=== PATIENT | female | born 1975 | race American Indian/Alaskan Native ===

== ENCOUNTER 2020-01-27 09:36 | Emergency (ER) | payer OTHER ==
[2020-01-27] MEDS ORDERED: hydrALAZINE 20 MG/1 ML INJ IV ONE (10:35)
--- NOTE | 2020-01-27 10:37 | Emergency Department Report ---
HPI - General Chief Complaint: Weakness Time Seen by Provider: 01/27/20 10:17 - HPI HPI: 44-year-old -[place] female presents to the emergency department with the complaint of some fatigue and generalized weakness and lightheadedness. Patient has been having bilateral hand pain and some swelling for the past week or so. She had a virtual visit with her primary care physician, Dr. Benitez, and was diagnosed with carpal tunnel and was prescribed some splints which she has been wearing. More recently she started complaining of some superior and posterior left shoulder pain. She recently had an x-ray done that did not show any fracture, dislocation or any acute process, per the patient. The patient says she was not feeling well when she woke up with the aforementioned symptoms but went to work anyways. While there she started having the lightheadedness/dizziness which is what prompted her to come to the emergency department. She has a past medical history of hypertension for which he takes lisinopril. No recent travel or sick contacts at home. She denies any fever, chest pain, shortness of breath. 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 denies: fever Eyes: denies: eye pain, vision change ENT: denies: ear pain, throat pain Respiratory: denies: cough, shortness of breath Cardiovascular: denies: chest pain, palpitations Gastrointestinal: denies: abdominal pain, vomiting Genitourinary: denies: dysuria, discharge Musculoskeletal: arthralgia. denies: back pain Skin: denies: rash, lesions Neurological: other (Dizziness/lightheadedness). denies: headache, numbness Physical Exam - Physical Exam Vital Signs: Vital Signs 01/27/20 01/27/20 09:43 10:23 Temperature 98.0 F 99.1 F Pulse Rate 78 75 Respiratory 18 16 Rate Blood Pressure 171/95 Blood Pressure 192/111 [Right] O2 Sat by Pulse 99 99 Oximetry Physical Exam: GENERAL: The patient is well-developed well-nourished. HENT: Normocephalic. Atraumatic. Patient has moist mucous membranes. EYES: Extraocular motions are intact. NECK: Supple. Trachea is midline. CHEST/LUNGS: Clear to auscultation. There is no respiratory distress noted. HEART/CARDIOVASCULAR: Regular. There is no tachycardia. ABDOMEN: Abdomen is soft, nontender. Patient has normal bowel sounds. SKIN: Skin is warm and dry. NEURO: The patient is awake, alert, and oriented. The patient is cooperative. The patient has no focal neurologic deficits. Normal speech. Cranial nerves II through XII grossly intact. MUSCULOSKELETAL: There is some reproduction of the patient's wrist and hand pain with palpation of the volar wrists bilaterally. Radial pulse +2/4 and capillary refill less than 2 seconds to the bilateral upper extremities. There is no limitation range of motion. There is no evidence of acute injury. ED Course Vital Signs 01/27/20 01/27/20 09:43 10:23 Temperature 98.0 F 99.1 F Pulse Rate 78 75 Respiratory 18 16 Rate Blood Pressure 171/95 Blood Pressure 192/111 [Right] O2 Sat by Pulse 99 99 Oximetry ED Medical Decision Making - Lab Data Result diagrams: 01/27/20 10:27 01/27/20 10:27 - EKG Data -: EKG Interpreted by Or EKG shows normal: sinus rhythm, axis, intervals, QRS complexes, ST-T waves Rate: normal - EKG Data When compared to previous EKG there are: previous EKG unavailable Interpretation: normal EKG - Medical Decision Making This patient presents to the emergency department with the complaint of some lightheadedness/dizziness that occurred at work this morning but has since resolved. She also has the more chronic complaints of bilateral wrist and hand pain and some hand swelling for which she is currently being worked up for carpal tunnel syndrome including a nerve conduction study in the near future. She also has a complaint of some left shoulder pain that is more in the superior and posterior shoulder for which she had a negative x-ray done outpatient. She has full range of motion and is neurovascularly intact. She has no chest pain, shortness of breath, fever and her vital signs have been stable throughout her ED course. Patient's labs have been unremarkable including CBC, metabolic panel and thyroid level. For all these reasons the patient appears safe for discharge home at this time. She will follow-up with her primary care physician and for her nerve conduction study. She will return to the emergency department with any worsening of her symptoms or any acute distress. Critical Care Time: No Critical care attestation.: If time is entered above; I have spent that time in minutes in the direct care of this critically ill patient, excluding procedure time. ED Disposition Clinical Impression: Lightheaded Hypertension Qualifiers: Hypertension type: essential hypertension Qualified Code(s): I10 - Essential (primary) hypertension Disposition: TO HOME OR SELFCARE Is pt being admited?: No Condition: Stable Instructions: Hypertension (ED), Lightheadedness (ED) Additional Instructions: Please follow-up with your primary care physician in the next few days. Please follow-up with the neurologist or orthopedist for your nerve conduction study. Return to the emergency department with any worsening of your symptoms or any acute distress. Try and stay away from foods that are high in salt and caffeinated products. Keep a blood pressure log. Referrals: PRIMARY CAREMD [Primary Care Provider] - 2-3 Days Time of Disposition: 11:33
[2020-01-27 10:44] VITALS: BP 172/111
[2020-01-27 10:55] LABS: Basophils % (Auto) 0.4 % (0.0-1.8); Eosinophils # (Auto) 0.1 K/mm3 (0.0-0.4); Eosinophils % (Auto) 0.9 % (0.0-4.3); Hematocrit 35.1 % (30.3-42.9); Hemoglobin 12.6 gm/dl (10.1-14.3); Lymphocytes # (Auto) 1.6 K/mm3 (1.2-5.4); Lymphocytes % (Auto) 21.3 % (13.4-35.0); Mean Corpuscular HGB Conc 36 % (30-34); Mean Corpuscular Volume 81 fl (79-97); Monocytes # (Auto) 0.4 K/mm3 (0.0-0.8); Monocytes % (Auto) 5.4 % (0.0-7.3); Platelet Count 381 K/mm3 (140-440); Red Blood Count 4.35 M/mm3 (3.65-5.03); Red Cell Distribution Width 14.8 % (13.2-15.2)
[2020-01-27 11:20] LABS: Alanine Aminotransferase 16 units/L (7-56); Albumin 3.5 g/dL (3.9-5); BUN/Creatinine Ratio 23; Blood Urea Nitrogen 18 mg/dL (7-17); Calcium 8.7 mg/dL (8.4-10.2); Hemolysis Index 10
== END 2020-01-27 11:42 | disposition home or self-care (01) ==
LOC: ED 09:36
DX: R42 Dizziness and giddiness (principal); I10 Essential (primary) hypertension
CPT/HCPCS: 36415; 80053; 84443; 84703; 85025; 93005; 96374; 99284; J0360